=== PATIENT | male | born 1950 | race Caucasian/White ===

== ENCOUNTER 2021-12-17 10:11 | Emergency (ER) | payer MEDICARE, BC ==
[~2021-12-17] VITALS: Ht 170.2 cm; Wt 88.5 kg
[2021-12-17] MEDS ORDERED: Norco 5-325 Ta1 EACH PO (11:27)
[2021-12-17] MEDS ORDERED: CRUTCH3 XX (11:27)
== END 2021-12-17 11:41 | disposition home or self-care (01) ==
LOC: ER 10:11
DX: S76.112A Strain of left quadriceps muscle, fascia and tendon, initial encounter (principal); I10 Essential (primary) hypertension; E78.00 Pure hypercholesterolemia, unspecified; W01.0XXA Fall on same level from slipping, tripping and stumbling without subsequent striking against object, initial encounter
CPT/HCPCS: 29505; 73562-LT; 99283-25